=== PATIENT | male | born 1945 | race Caucasian/White ===

== ENCOUNTER 2021-05-17 11:00 | Outpatient (RCR) | payer MEDICARE, SELFPAY ==
[2021-05-03 11:15] VITALS: BP 127/70; PULSE 89; RESP 18; TEMP 36.8
--- NOTE | 2021-05-03 13:24 | HP.PCM_ITS ---
History of Present Illness Date of Service: 05/03/21 Chief Complaint: ulcers of buttocks bilaterally History of Wound: Erwin is a 75 yo gentleman that presents to the wound healing center today at the request of Dr. Abram Cosme for evaluation and treatment of bilateral buttock ulcers. He is accompanied by his , Roxana, who has been dressing the ulcers. The ulcers have been present for approximately 2 weeks and started after Erwin began sleeping in his recliner at night instead of his bed due to feeling like he could not breathe and shortness of breath when lying down. Roxana has been dressing his ulcers with triple antibiotic ointment and covering with nonstick dressing daily. She reports that there is mild drainage from the ulcers but denies odor. She has placed an egg crate foam on his recliner to help with offloading pressure to his buttock. 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 He also has increased lower extremity edema and was started on Bumex but does not have compression stockings or other compression devices for his lower legs at home. He currently does not have any ulcers of his lower legs. He denies fever, chills, increased pain or odor. [facility] Home Medications albuterol sulfate INHALATION 05/03/21 [History Last Taken Unknown] albuterol sulfate [ProAir HFA] INHALATION 05/03/21 [History Last Taken Unknown] atorvastatin 05/03/21 [History Last Taken Unknown] bumetanide 05/03/21 [History Last Taken Unknown] donepezil mg 05/03/21 [History Last Taken Unknown] fluocinonide applic TOPICAL 05/03/21 [History Last Taken Unknown] fluticasone propion-salmeterol [Advair Diskus] INHALATION 05/03/21 [History Last Taken Unknown] glyburide mg 05/03/21 [History Last Taken Unknown] lisinopril-hydrochlorothiazide tab 05/03/21 [History Last Taken Unknown] metformin mg 05/03/21 [History Last Taken Unknown] pioglitazone mg 05/03/21 [History Last Taken Unknown] prednisone 05/03/21 [History Last Taken Unknown] Allergy/AdvReac Type Severity Reaction Status Date / Time morphine Allergy Swelling Verified 05/03/21 11:20 Family History (Updated 05/03/21 @ 13:[address] Jordyn Triplett DO) Mother Cancer Father COPD (chronic obstructive pulmonary disease) Cancer Sister Cancer Brother CAD (coronary artery disease) Cancer Surgical History (Updated 05/03/21 @ 13:[address] Jordyn Triplett DO) History of appendectomy History of carpal tunnel surgery History of cataract surgery History of colonoscopy History of hemorrhoidectomy History of hernia repair History of lobectomy of lung History of repair of rotator cuff History of tonsillectomy Social History (Updated 05/03/21 @ 13:[address] Jordyn Triplett DO) household members: spouse housing: house current occupational status: retired current gender identity: male Smoking Status: Light Smoker (<10/day) Smokeless tobacco user: chewing tobacco substance use type: does not use ROS Constitutional Constitutional: Denies chills or fever(s) Eyes Eyes: Denies blurry vision or loss of vision ENT HEENT: Denies dizziness Cardiovascular Cardiovascular: Reports dyspnea, dyspnea on exertion and orthopnea; Denies abdominal pain, chest pain or palpitations Respiratory/Chest Respiratory/Chest: Reports cough, dyspnea and dyspnea on exertion Gastrointestinal Gastrointestinal: Denies diarrhea, nausea or vomiting Musculoskeletal Musculoskeletal: Reports back pain and difficulty walking Integumentary Integumentary: Reports skin ulcer Neurologic Neurologic: Reports confusion and memory loss Psychiatric Psychiatric: Reports cognitive impairment Endocrine Endocrinology: Denies cold intolerance or heat intolerance Hematologic/Lymphatic Hematologic/Lymphatic: Denies easy bleeding, easy bruising or lymphadenopathy Vital Signs Vital Signs Vital Signs: 05/03/21 11:15 Temperature 98.2 F Temperature Source Temporal Pulse Rate 89 Respiratory Rate 18 Blood Pressure 127/70 H Blood Pressure Mean 89 Blood Pressure Source Monitor Blood Pressure Position Semi-Fowlers Blood Pressure Location Left Arm Physical Exam Const alert, oriented x3 and no apparent distress General Appearance: cooperative and comfortable Nutritional Appearance: morbidly obese HEENT normocephalic and head/scalp atraumatic Mouth: oral and palatal mucosa normal Eyes PERRL Neck no lymphadenopathy and supple Resp normal respiratory effort Effort and Inspection: able to speak in complete sentences Auscultation: clear to auscultation bilaterally Cardio regular rate and regular rhythm GI normal to inspection, nondistended, normoactive bowel sounds Extremity General Extremity: edema bilateral lower extremity Details: moderate Skin Wounds: wounds noted Wound Narrative: as in clinical panel Neuro moves all extremities and no focal motor deficits Speech: speech normal Gait (Neuro): shuffling and assistive device used Psych Speech: normal speech Mood & Affect: blunted affect Debridement Note Debridement Note Post-Debridement Measurements and Additional Note: Post-Debridement Measurements/Treatment - Nurse 1 - General Ulcer Assessment Start: 05/03/21 11:15 Freq: Status: Active Protocol: TRAVON Activity Type Activity Date Activity User E-Sign Co-Sign Detail Recorded Client Recorded Date Recorded By Document 05/03/21 11:15 [id number] 05/03/21 11:19 05/03/21 11:15 WC - Today's Visit Information Type of service Follow-up Visit (Physician/MILL ROLL OPERATOR ) Arrival Mode Wheelchair Transfer Assistance Manual Patient Identification Verified (Name & Yes ) Patient Requires Transmission-Based No Precautions Vital Signs Temperature (97.8 F-99.1 F) 98.2 F Temperature Source Temporal Pulse Rate (60-100) 89 Pulse Location Monitor Respiratory Rate (12-18) 18 Respiratory rate source Observation Blood Pressure (90/60-120/80) 127/70 H Blood Pressure Mean 89 Source Monitor Position Semi-Fowlers Blood Pressure Location Left Arm History Since Last Visit- (Skip if this is Patient's initial visit) Have you changed medications since your No last visit? Any new allergies or adverse reactions No Had a fall/change in ADL's that may No increase risk of falls Signs or symptoms of abuse and/or No neglect since last visit Have you been in the hospital since your No last visit? Has dressing in place as prescribed Yes Has compression in place as prescribed No Has offloadiing in place as prescribed No Experienced any changes in pain level or No management Pain Scale: 0-10 Numeric Is Patient Pain Free? Yes - Nurse 1 - General Ulcer Measurement Start: 05/03/21 11:15 Freq: Status: Active Protocol: Activity Type Activity Date Activity User E-Sign Co-Sign Detail Recorded Client Recorded Date Recorded By Document 05/03/21 11:15 RB [id number] 05/03/21 11:19 ESTIVEN 05/03/21 11:15 Wound Center Nurse 1 2. L Buttocks -Current Size (cm) - Length 0.4 -Current Size (cm) - Width 0.4 -Current Size (cm) - Depth 0.2 -Total Square Cm 0.16 -Tunneling No -Undermining/Tunneling No -Circular Undermining No -Exudate Amt Medium -Exudate Type Serosanguineous -Wound Margin Distinct, Outline Attached -Granulation Amt Medium (34-66%) -Granulation Quality [place] -Slough/Fibrin Yes -Necrosis Amt Small (1-33%) -Necrotic Tissue Type Adherent Slough -Structure Exposed N/A -Texture (Luz Elena-wound Skin Appearance) Assessed -Moisture (Luz Elena-wound Skin Appearance) Assessed -Color (Luz Elena-wound Skin Appearance) Assessed -Temperature (Luz Elena-wound Skin No Abnormality Appearance) (Pt Warm) -Tenderness on Palpation (Luz Elena-wound No Skin Appearance) -Ulcer Cleansing Wound Cleanser -Foul Odor after Cleansing No -Anesthetic Used 4% Lidocaine Solution 1. R buttock cluster -Combined with other wound No -Current Size (cm) - Length 3 -Current Size (cm) - Width 1 -Current Size (cm) - Depth 0.2 -Total Square Cm 3 -Tunneling No -Undermining/Tunneling No -Circular Undermining No -Exudate Amt Small -Exudate Type Serosanguineous -Wound Margin Distinct, Outline Attached -Granulation Amt Medium (34-66%) -Granulation Quality [place] -Slough/Fibrin Yes -Necrosis Amt Small (1-33%) -Necrotic Tissue Type Adherent Slough -Structure Exposed N/A -Texture (Luz Elena-wound Skin Appearance) Assessed, Excoriation -Moisture (Luz Elena-wound Skin Appearance) Assessed -Color (Luz Elena-wound Skin Appearance) Assessed -Temperature (Luz Elena-wound Skin No Abnormality Appearance) (Pt Warm) -Tenderness on Palpation (Luz Elena-wound No Skin Appearance) -Ulcer Cleansing Wound Cleanser -Foul Odor after Cleansing No -Anesthetic Used 5% Lidocaine Gel WC - Nurse 2 - General Ulcer CM Notes Start: 05/03/21 11:15 Freq: Status: Active Protocol: Activity Type Activity Date Activity User E-Sign Co-Sign Detail Recorded Client Recorded Date Recorded By Document 05/03/21 11:32 MW [id number] 05/03/21 11:48 MW 05/03/21 11:32 Wound Center Nurse 2 2. L Buttocks -Time 11:33 -Correct Patient Yes -Correct Side, Site, Position Yes -Correct Procedure Yes -Procedure Performed Yes -Type of Procedure Debridement -Clinical Debridement Subcutaneous -Tissue Removed Subcutaneous -Post Debridement (cm) - Length 0.5 -Post Debridement (cm) - Width 0.4 -Post Debridement (cm) - Depth 0.1 -Total Square (Post) (cm) 0.20 -Area of Debridement (cm) - Length 0.5 -Area of Debridement (cm) - Width 0.4 -Total Square (Area) (cm) 0.20 -Tunneling No -Undermining/Tunneling No -Circular Undermining No -Wound/Ulcer Outcome Not Healed -Ulcer Cleansing Rinsed/ Irrigated with Saline -Foul Odor after Cleansing No -Bioengineered Tissue No -Bleeding Controlled with Pressure -Offloading No -Treatment Response Procedure Tolerated Well -Debridement - Subq, 1st 20sq cm Yes 1. R buttock cluster -Time 11:33 -Correct Patient Yes -Correct Side, Site, Position Yes -Correct Procedure Yes -Procedure Performed Yes -Type of Procedure Debridement -Clinical Debridement Subcutaneous -Tissue Removed Subcutaneous -Post Debridement (cm) - Length 2.5 -Post Debridement (cm) - Width 1.0 -Post Debridement (cm) - Depth 0.2 -Total Square (Post) (cm) 2.50 -Area of Debridement (cm) - Length 2.5 -Area of Debridement (cm) - Width 1.0 -Total Square (Area) (cm) 2.50 -Tunneling No -Undermining/Tunneling No -Circular Undermining No -Wound/Ulcer Outcome Not Healed -Ulcer Cleansing Rinsed/ Irrigated with Saline -Foul Odor after Cleansing No -Bioengineered Tissue No -Bleeding Controlled with Pressure -Offloading No -Treatment Response Procedure Tolerated Well -Debridement - Subq, 1st 20sq cm No Pain Scale: 0-10 Numeric Is Patient Pain Free? Yes - Nurse 3 - General Ulcer D/C NN Start: 05/03/21 11:15 Freq: Status: Active Protocol: Activity Type Activity Date Activity User E-Sign Co-Sign Detail Recorded Client Recorded Date Recorded By Document 05/03/21 12:25 RB [id number] 05/03/21 12:27 RB 05/03/21 12:25 Wound Care Nurse 3 2. L Buttocks -Ulcer Cleansing Wound Cleanser -Primary Dressing Applied Promogran Brenda Matter -Other Dressing bordered silcone foam -Promogran Brenda Matter 1 1. R buttock cluster -Other Dressing brenda, silcone bordered foam Right -Tubular Bandage Single Layer -Size of Tubigrip Used Size E -Size E ($) 1 Left -Tubular Bandage Single Layer -Size of Tubigrip Used Size E -Size E ($) 1 Treatment Response Procedure Tolerated Well Pain Scale: 0-10 Numeric Is Patient Pain Free? Yes WC - Visit Discharge Discharge Condition Stable Ambulatory Status Wheelchair Transportation Private Auto Medication Reconcilliation completed & No provided to patient/care provider Clinical Summary of Care Provided Yes Wound debrided: left buttock Laterality: Left Wound Grade/Stage: Stage II Type of Debridement: Excisional debridement Anesthesia Used: 4% Lidocaine Solution Depth: Down to and including healthy tissue and in the subcutaneous layer Percentage of wound debrided: 100 Instrument Used: 3mm curette Tissue Removed: Yellow slough, devitalized tissue Severity: Fat Layer Exposed Amount of bleeding with debridement: Mild Bleeding Controlled with: Pressure Patient tolerated procedure: Patient tolerated procedure well Additional Wound Wound debrided: right buttock cluster Laterality: Right Wound Grade/Stage: Stage II Type of Debridement: Excisional debridement Anesthesia Used: 4% Lidocaine Solution Depth: Down to and including healthy tissue and in the subcutaneous layer Percentage of wound debrided: 100 Instrument Used: 3mm curette Tissue Removed: Yellow slough, devitalized tissue Severity: Fat Layer Exposed Amount of bleeding with debridement: Mild Bleeding Controlled with: Pressure Patient tolerated procedure: Patient tolerated procedure well Assessment/Plan Assessment/Plan (1) COPD (chronic obstructive pulmonary disease): CODE(S): J44.9 - Chronic obstructive pulmonary disease, unspecified QUALIFIERS: COPD type: emphysema Emphysema type: unspecified Qualified Code(s): J43.9 - Emphysema, unspecified (2) Orthopnea: CODE(S): R06.01 - Orthopnea (3) Dementia: CODE(S): F03.90 - Unspecified dementia without behavioral disturbance QUALIFIERS: Dementia type: Alzheimer's Alzheimer's disease onset: unspecified onset Dementia behavioral disturbance: without behavioral disturbance Qualified Code(s): G30.9 - Alzheimer's disease, unspecified; F02.80 - Dementia in other diseases classified elsewhere without behavioral disturbance (4) HTN (hypertension): CODE(S): I10 - Essential (primary) hypertension QUALIFIERS: Hypertension type: unspecified Qualified Code(s): I10 - Essential (primary) hypertension (5) Chronic diastolic (congestive) heart failure: CODE(S): I50.32 - Chronic diastolic (congestive) heart failure (6) Stage II pressure ulcer of left buttock: CODE(S): L89.322 - Pressure ulcer of left buttock, stage 2 (7) Stage II pressure ulcer of right buttock: CODE(S): L89.312 - Pressure ulcer of right buttock, stage 2 (8) Type 2 diabetes mellitus: CODE(S): E11.9 - Type 2 diabetes mellitus without complications QUALIFIERS: Diabetes mellitus shelter insulin use: without terminologist use Diabetes mellitus complication status: with hyperglycemia Qualified Code(s): E11.65 - Type 2 diabetes mellitus with hyperglycemia PLAN: Erwin's ulcers were evaluated and debrided today at the wound healing center. Wound cultures were taken and will treat with antibiotics if needed. Will dress ulcers with Brenda and optifoam or similar dressing for moderate drainage. Encourage adequate glucose control and increased protein intake to help heal ulcers. Most recent labs from 2 weeks ago reviewed and show no concerning signs to impede healing. His HgbA1C was 7.0%. Stressed the importance of offloading the buttocks and demonstrated ways to offload. Encouraged sleeping in bed and also obtaining a gel cushion for him to sit on. Also will have him use tubigrip in single layer to his LE for lower extremity edema. Encouraged looking into getting 16-20 mm Hg compression socks. He will return in 1 week for nurse visit and 2 weeks for wound care.
[2021-05-10 10:52] VITALS: BP 138/69; PULSE 71; TEMP 36.6
[2021-05-17 10:51] VITALS: BP 125/67; PULSE 74; TEMP 36.1
--- NOTE | 2021-05-17 12:32 | PCM.WC.PN ---
History of Present Illness Date of Service: 05/17/21 Chief Complaint: ulcers of buttocks bilaterally History of Wound: Erwin is a 75 yo gentleman that presents to the wound healing center today at the request of Dr. Abram Cosme for evaluation and treatment of bilateral buttock ulcers. He is accompanied by his , Roxana, who has been dressing the ulcers. The ulcers have been present for approximately 2 weeks and started after Erwin began sleeping in his recliner at night instead of his bed due to feeling like he could not breathe and shortness of breath when lying down. Roxana has been dressing his ulcers with triple antibiotic ointment and covering with nonstick dressing daily. She reports that there is mild drainage from the ulcers but denies odor. She has placed an egg crate foam on his recliner to help with offloading pressure to his buttock. 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 He also has increased lower extremity edema and was started on Bumex but does not have compression stockings or other compression devices for his lower legs at home. He currently does not have any ulcers of his lower legs. He denies fever, chills, increased pain or odor. Progress of Wound: Erwin returns today for follow up of ulcers of his bilateral buttocks. He has been tolerating treatment with Brenda and has had some improvement in his ulcers. He has still been unable to sleep in bed but he has been offloading his ulcers while in his recliner. His wound culture showed yeast and staph epidermidis. He was not started on antibiotics until his ulcers were reassessed. He denies any fevers, chills, increased drainage, or erythema. Objective Data Objective Data Vital Signs: Vital Signs Temp Pulse Resp BP 97.0 F L 74 18 125/67 H 05/17/21 10:51 05/17/21 10:51 05/03/21 11:15 05/17/21 10:51 Lab / Micro Data Micro: Microbiology 05/03/21 11:45 Wound Abcess - Buttock Gram Stain - Final 05/03/21 11:45 Wound Abcess - Buttock Wound Culture - Final Staphylococcus epidermidis Yeast, not Desirae albicans 05/03/21 11:45 Wound Abcess - Buttock Anaerobic Culture - Final No anaerobic bacteria isolated. Physical Exam Const alert, oriented x3 and no apparent distress General Appearance: cooperative and comfortable Nutritional Appearance: morbidly obese HEENT normocephalic and head/scalp atraumatic Eyes PERRL Neck no lymphadenopathy and supple Resp normal respiratory effort Effort and Inspection: able to speak in complete sentences Auscultation: clear to auscultation bilaterally Cardio regular rate and regular rhythm GI normal to inspection, nondistended, normoactive bowel sounds Extremity General Extremity: edema bilateral lower extremity Details: moderate Skin Wounds: wounds noted Wound Narrative: as in clinical panel Neuro moves all extremities and no focal motor deficits Speech: speech normal Gait (Neuro): shuffling and assistive device used Psych Speech: normal speech Mood & Affect: blunted affect Debridement Note Debridement Note Post-Debridement Measurements and Additional Note: Post-Debridement Measurements/Treatment - Nurse 1 - General Ulcer Assessment Start: 05/03/21 11:15 Freq: Status: Active Protocol: ASHLEIGH.LOWGERMAINET Activity Type Activity Date Activity User E-Sign Co-Sign Detail Recorded Client Recorded Date Recorded By Document 05/03/21 11:15 RB [id number] 05/03/21 11:19 RB Document 05/10/21 10:52 AK [id number] 05/10/21 11:13 AK Document 05/17/21 10:51 KR [id number] 05/17/21 10:55 KR 05/03/21 05/10/21 05/17/21 11:15 10:52 10:51 - Today's Visit Information Type of service Follow-up Visit Nurse-only Follow-up Visit (Physician/SURVEY PROJECT MANAGER Visit (Physician/SURVEY PROJECT MANAGER ) ) Arrival Mode Wheelchair Wheelchair Wheelchair Transfer Assistance Manual Patient Identification Verified (Name & Yes Yes Yes ) Patient Requires Transmission-Based No Precautions Vital Signs Temperature (97.8 F-99.1 F) 98.2 F 97.8 F 97.0 F L Temperature Source Temporal Temporal Temporal Pulse Rate (60-100) 89 71 74 Pulse Location Monitor Monitor Monitor Respiratory Rate (12-18) 18 Respiratory rate source Observation Blood Pressure (90/60-120/80) 127/70 H 138/69 H 125/67 H Blood Pressure Mean (mm Hg) 89 92 86 Source Monitor Monitor Monitor Position Semi-Fowlers Semi-Fowlers Blood Pressure Location Left Arm Left Arm History Since Last Visit- (Skip if this is Patient's initial visit) Have you changed medications since your No No No last visit? Any new allergies or adverse reactions No No No Had a fall/change in ADL's that may No No No increase risk of falls Signs or symptoms of abuse and/or No No No neglect since last visit Have you been in the hospital since your No No No last visit? Has dressing in place as prescribed Yes Yes Yes Has compression in place as prescribed No N/A N/A Has offloadiing in place as prescribed No Yes N/A Experienced any changes in pain level or No No management Left Footwear Regular Shoe Regular Shoe Right Footwear Regular Shoe Regular Shoe Pain Scale: 0-10 Numeric Is Patient Pain Free? Yes Yes WC - Nurse 1 - General Ulcer Measurement Start: 05/03/21 11:15 Freq: Status: Active Protocol: Activity Type Activity Date Activity User E-Sign Co-Sign Detail Recorded Client Recorded Date Recorded By Document 05/03/21 11:15 RB [id number] 05/03/21 11:19 RB Document 05/10/21 10:52 AK [id number] 05/10/21 11:13 AK Document 05/17/21 10:51 KR [id number] 05/17/21 10:55 KR 05/03/21 05/10/21 05/17/21 11:15 10:52 10:51 Wound Center Nurse 1 2. L Buttocks -Current Size (cm) - Length 0.4 0.2 -Current Size (cm) - Width 0.4 0.3 -Current Size (cm) - Depth 0.2 0.1 -Total Square Cm 0.16 0.06 -Tunneling No -Undermining/Tunneling No -Circular Undermining No -Exudate Amt Medium Medium Small -Exudate Type Serosanguineous Serosanguineous Serosanguineous -Wound Margin Distinct, Distinct, Distinct, Outline Outline Outline Attached Attached Attached -Granulation Amt Medium (34-66%) Small (1-33%) -Granulation Quality [place] -Slough/Fibrin Yes -Necrosis Amt Small (1-33%) -Necrotic Tissue Type Adherent Slough Adherent Slough -Structure Exposed N/A -Texture (Luz Elena-wound Skin Appearance) Assessed No Abnormality, Assessed, Assessed Scarring -Moisture (Luz Elena-wound Skin Appearance) Assessed No Abnormality, Assessed, Assessed Maceration -Color (Luz Elena-wound Skin Appearance) Assessed No Abnormality, No Abnormality, Assessed Assessed -Temperature (Luz Elena-wound Skin No Abnormality No Abnormality No Abnormality Appearance) (Pt Warm) (Pt Warm) (Pt Warm) -Tenderness on Palpation (Luz Elena-wound No No No Skin Appearance) -Ulcer Cleansing Wound Cleanser Rinsed/ Rinsed/ Irrigated with Irrigated with Saline Saline -Foul Odor after Cleansing No No -Anesthetic Used 4% Lidocaine 5% Lidocaine Solution Gel 1. R buttock cluster -Combined with other wound No No -Current Size (cm) - Length 3 0.7 -Current Size (cm) - Width 1 1.1 -Current Size (cm) - Depth 0.2 0.2 -Total Square Cm 3 0.77 -Tunneling No -Undermining/Tunneling No No -Circular Undermining No No -Exudate Amt Small Small Small -Exudate Type Serosanguineous Serosanguineous Serosanguineous -Wound Margin Distinct, Distinct, Distinct, Outline Outline Outline Attached Attached Attached -Granulation Amt Medium (34-66%) None Present (0 Small (1-33%) %) -Granulation Quality [place] -Slough/Fibrin Yes -Necrosis Amt Small (1-33%) None Present (0 None Present (0 %) %) -Necrotic Tissue Type Adherent Slough -Structure Exposed N/A -Texture (Luz Elena-wound Skin Appearance) Assessed, No Abnormality, Assessed, Excoriation Assessed Scarring -Moisture (Luz Elena-wound Skin Appearance) Assessed No Abnormality, Assessed, Assessed Maceration -Color (Luz Elena-wound Skin Appearance) Assessed No Abnormality, No Abnormality, Assessed Assessed -Temperature (Luz Elena-wound Skin No Abnormality No Abnormality No Abnormality Appearance) (Pt Warm) (Pt Warm) (Pt Warm) -Tenderness on Palpation (Luz Elena-wound No No Skin Appearance) -Ulcer Cleansing Wound Cleanser Rinsed/ Rinsed/ Irrigated with Irrigated with Saline Saline -Foul Odor after Cleansing No No -Anesthetic Used 5% Lidocaine 5% Lidocaine Gel Gel WC - Nurse 2 - General Ulcer CM Notes Start: 05/03/21 11:15 Freq: Status: Active Protocol: Activity Type Activity Date Activity User E-Sign Co-Sign Detail Recorded Client Recorded Date Recorded By Document 05/03/21 11:32 MW [id number] 05/03/21 11:48 MW Document 05/17/21 11:32 MW [id number] 05/17/21 11:39 MW 05/03/21 05/17/21 11:32 11:32 Wound Center Nurse 2 2. L Buttocks -Time 11: 11:33 -Correct Patient Yes Yes -Correct Side, Site, Position Yes Yes -Correct Procedure Yes Yes -Procedure Performed Yes Yes -Type of Procedure Debridement Debridement -Clinical Debridement Subcutaneous Subcutaneous -Tissue Removed Subcutaneous Subcutaneous -Post Debridement (cm) - Length 0.5 0.2 -Post Debridement (cm) - Width 0.4 0.2 -Post Debridement (cm) - Depth 0.1 0.1 -Total Square (Post) (cm) 0.20 0.04 -Area of Debridement (cm) - Length 0.5 0.2 -Area of Debridement (cm) - Width 0.4 0.2 -Total Square (Area) (cm) 0.20 0.04 -Tunneling No No -Undermining/Tunneling No No -Circular Undermining No No -Wound/Ulcer Outcome Not Healed Not Healed -Ulcer Cleansing Rinsed/ Rinsed/ Irrigated with Irrigated with Saline Saline -Foul Odor after Cleansing No No -Bioengineered Tissue No No -Bleeding Controlled with Pressure Pressure -Offloading No No -Treatment Response Procedure Procedure Tolerated Well Tolerated Well -Debridement - Subq, 1st 20sq cm Yes Yes 1. R buttock cluster -Time 11:33 11:35 -Correct Patient Yes Yes -Correct Side, Site, Position Yes Yes -Correct Procedure Yes Yes -Procedure Performed Yes Yes -Type of Procedure Debridement Debridement -Clinical Debridement Subcutaneous Subcutaneous -Tissue Removed Subcutaneous Subcutaneous -Post Debridement (cm) - Length 2.5 1.1 -Post Debridement (cm) - Width 1.0 0.4 -Post Debridement (cm) - Depth 0.2 0.2 -Total Square (Post) (cm) 2.50 0.44 -Area of Debridement (cm) - Length 2.5 1.1 -Area of Debridement (cm) - Width 1.0 0.4 -Total Square (Area) (cm) 2.50 0.44 -Tunneling No No -Undermining/Tunneling No No -Circular Undermining No No -Wound/Ulcer Outcome Not Healed Not Healed -Ulcer Cleansing Rinsed/ Rinsed/ Irrigated with Irrigated with Saline Saline -Foul Odor after Cleansing No No -Bioengineered Tissue No No -Bleeding Controlled with Pressure Pressure -Offloading No No -Treatment Response Procedure Procedure Tolerated Well Tolerated Well -Debridement - Subq, 1st 20sq cm No No Pain Scale: 0-10 Numeric Is Patient Pain Free? Yes Yes WC - Nurse 3 - General Ulcer D/C NN Start: 05/03/21 11:15 Freq: Status: Active Protocol: Activity Type Activity Date Activity User E-Sign Co-Sign Detail Recorded Client Recorded Date Recorded By Document 05/03/21 12:25 RB [id number] 05/03/21 12:27 RB Document 05/10/21 10:52 AK [id number] 05/10/21 11:13 AK Document 05/17/21 11:54 ML [id number] 05/17/21 11:55 ML 05/03/21 05/10/21 05/17/21 12:25 10:52 11:54 Wound Care Nurse 3 2. L Buttocks -Ulcer Cleansing Wound Cleanser Rinsed/ Irrigated with Saline -Primary Dressing Applied Promogran Promogran Brenda Matter -Other Dressing bordered foam dressing silcone foam -Promogran 2 -Promogran Brenda Matter 1 1. R buttock cluster -Ulcer Cleansing Rinsed/ Rinsed/ Irrigated with Irrigated with Saline Saline -Primary Dressing Applied Mepilex Border, Promogran Promogran Brenda Matter -Other Dressing brenda, silcone foam dressing bordered foam -Mepilex Border 1 -Promogran 0 -Promogran Brenda Matter 0 Right -Tubular Bandage Single Layer -Size of Tubigrip Used Size E -Size E ($) 1 Left -Tubular Bandage Single Layer -Size of Tubigrip Used Size E -Size E ($) 1 Treatment Response Procedure Tolerated Well Vital Signs Temperature (97.8 F-99.1 F) 97.8 F Temperature Source Temporal Pulse Rate (60-100) 71 Pulse Location Monitor Blood Pressure (90/60-120/80) 138/69 H Blood Pressure Mean (mm Hg) 92 Source Monitor Pain Scale: 0-10 Numeric Is Patient Pain Free? Yes WC - Visit Discharge Discharge Condition Stable Stable Ambulatory Status Wheelchair Walker Transportation Private Auto Medication Reconcilliation completed & No No provided to patient/care provider Clinical Summary of Care Provided Yes Yes Wound debrided: right buttock cluster Laterality: Right Wound Grade/Stage: Stage II Type of Debridement: Excisional debridement Anesthesia Used: 5% Lidocaine Gel Depth: Down to and including healthy tissue and in the subcutaneous layer Percentage of wound debrided: 100 Instrument Used: 3mm curette Tissue Removed: yellow slough, devitalized tissue Severity: Fat Layer Exposed Amount of bleeding with debridement: Mild Bleeding Controlled with: Pressure Patient tolerated procedure: Patient tolerated procedure well Additional Wound Wound debrided: left buttock ulcer Laterality: Left Wound Grade/Stage: Stage II Type of Debridement: Excisional debridement Anesthesia Used: 4% Lidocaine Solution Depth: Down to and including healthy tissue and in the subcutaneous layer Percentage of wound debrided: 100 Instrument Used: 3mm curette Tissue Removed: yellow slough, devitalized tissue Severity: Fat Layer Exposed Amount of bleeding with debridement: Mild Bleeding Controlled with: Compression and gauze Patient tolerated procedure: Patient tolerated procedure well Assessment/Plan Assessment/Plan (1) COPD (chronic obstructive pulmonary disease): CODE(S): J44.9 - Chronic obstructive pulmonary disease, unspecified QUALIFIERS: COPD type: emphysema Emphysema type: unspecified Qualified Code(s): J43.9 - Emphysema, unspecified (2) Orthopnea: CODE(S): R06.01 - Orthopnea (3) Dementia: CODE(S): F03.90 - Unspecified dementia without behavioral disturbance QUALIFIERS: Alzheimer's disease onset: unspecified onset Dementia behavioral disturbance: without behavioral disturbance Dementia type: Alzheimer's Qualified Code(s): G30.9 - Alzheimer's disease, unspecified; F02.80 - Dementia in other diseases classified elsewhere without behavioral disturbance (4) HTN (hypertension): CODE(S): I10 - Essential (primary) hypertension QUALIFIERS: Hypertension type: unspecified Qualified Code(s): I10 - Essential (primary) hypertension (5) Chronic diastolic (congestive) heart failure: CODE(S): I50.32 - Chronic diastolic (congestive) heart failure (6) Stage II pressure ulcer of left buttock: CODE(S): L89.322 - Pressure ulcer of left buttock, stage 2 (7) Stage II pressure ulcer of right buttock: CODE(S): L89.312 - Pressure ulcer of right buttock, stage 2 (8) Type 2 diabetes mellitus: CODE(S): E11.9 - Type 2 diabetes mellitus without complications QUALIFIERS: Diabetes mellitus complication status: with hyperglycemia Diabetes mellitus correction insulin use: without correction use Qualified Code(s): E11.65 - Type 2 diabetes mellitus with hyperglycemia PLAN: Erwin's ulcers were evaluated and debrided today at the wound healing center. Wound cultures were reviewed and due to lack of improvement, he will be started on ciprofloxacin today. He may also need treatment with fluconazole for yeast but will re-evaluate next week. Will change dressing to ulcers to Promogran and optifoam or similar dressing for moderate drainage. Encourage adequate glucose control and increased protein intake to help heal ulcers. Most recent labs from 2 weeks ago reviewed and show no concerning signs to impede healing. His HgbA1C was 7.0%. Stressed the importance of offloading the buttocks and demonstrated ways to offload. Encouraged sleeping in bed and also obtaining a gel cushion for him to sit on. Also will have him use tubigrip in single layer to his LE for lower extremity edema. Encouraged looking into getting 16-20 mm Hg compression socks. He will return in 1 week for wound care.
== END 2021-05-21 23:59 ==
LOC: WC 11:00
PROVIDERS: PCP Family Medicine; Referring Provider Family Medicine; Visit Provider Family Medicine
DX: L89.312 Pressure ulcer of right buttock, stage 2 (principal); L89.322 Pressure ulcer of left buttock, stage 2; E11.65 Type 2 diabetes mellitus with hyperglycemia; I50.32 Chronic diastolic (congestive) heart failure; I11.0 Hypertensive heart disease with heart failure; F02.80 Dementia in other diseases classified elsewhere, unspecified severity, without behavioral disturbance, psychotic disturbance, mood disturbance, and anxiety; G30.9 Alzheimer's disease, unspecified; J44.9 Chronic obstructive pulmonary disease, unspecified; Z79.4 Long term (current) use of insulin; Z79.51 Long term (current) use of inhaled steroids; Z79.52 Long term (current) use of systemic steroids; Z79.899 Other long term (current) drug therapy
CPT/HCPCS: 11042; 87070; 87075; 87077; 87186; 87205; 99203; 99212; G0463

== ENCOUNTER 2021-05-31 10:00 | Outpatient (RCR) | payer MEDICARE, SELFPAY ==
[2021-05-22 00:42] VITALS: BP 125/67; PULSE 74; RESP 18; TEMP 36.1
[2021-05-24 10:31] VITALS: BP 124/58; PULSE 72; TEMP 36.2
--- NOTE | 2021-05-24 11:29 | PN.PCM_ITS ---
History of Present Illness Date of Service: 05/24/21 Chief Complaint: ulcers of buttocks bilaterally History of Wound: Erwin is a 75 yo gentleman that presents to the wound healing center today at the request of Dr. Abram Cosme for evaluation and treatment of bilateral buttock ulcers. He is accompanied by his , Roxana, who has been dressing the ulcers. The ulcers have been present for approximately 2 weeks and started after Erwin began sleeping in his recliner at night instead of his bed due to feeling like he could not breathe and shortness of breath when lying down. Roxana has been dressing his ulcers with triple antibiotic ointment and covering with nonstick dressing daily. She reports that there is mild drainage from the ulcers but denies odor. She has placed an egg crate foam on his recliner to help with offloading pressure to his buttock. 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 He also has increased lower extremity edema and was started on Bumex but does not have compression stockings or other compression devices for his lower legs at home. He currently does not have any ulcers of his lower legs. He denies fever, chills, increased pain or odor. Progress of Wound: Erwin returns today for follow up of ulcers of his bilateral buttocks. He has been tolerating treatment with Tara and has had improvement in his ulcers. The left buttock ulcer is healed today. He has still been unable to sleep in bed but he has been offloading his ulcers while in his recliner. His wound culture showed yeast and staph epidermidis. He is almost finished with antibiotics. He denies any fevers, chills, increased drainage, or erythema. Objective Data Objective Data Vital Signs: Vital Signs Temp Pulse Resp BP 97.2 F L 72 18 124/58 H 05/24/21 10:31 05/24/21 10:31 05/22/21 00:42 05/24/21 10:31 Physical Exam Const alert, oriented x3 and no apparent distress General Appearance: comfortable Nutritional Appearance: obese HEENT normocephalic and head/scalp atraumatic Resp normal respiratory effort Effort and Inspection: able to speak in complete sentences Cardio regular rate and regular rhythm Skin Wounds: wounds noted Wound Narrative: as in clinical panel Psych mental status grossly normal, thought process normal and cooperative Debridement Note Debridement Note Wound debrided: left buttock Laterality: Left No debridement was completed: No debridement was completed today (wound is healed) Post-Debridement Measurements and Additional Note: Post-Debridement Measurements/Treatment - Nurse 1 - General Ulcer Assessment Start: 05/24/21 10:31 Freq: Status: Active Protocol: TRAVON Activity Type Activity Date Activity User E-Sign Co-Sign Detail Recorded Client Recorded Date Recorded By Document 05/24/21 10:31 MIKAYLA [id number] 05/24/21 10:36 TN 05/24/21 10:31 WC - Today's Visit Information Type of service Follow-up Visit (Physician/LAST PATTERN GRADER ) Arrival Mode Wheelchair Patient Identification Verified (Name & Yes ) Patient Requires Transmission-Based No Precautions Safety Precautions NA Vital Signs Temperature (97.8 F-99.1 F) 97.2 F L Temperature Source Temporal Pulse Rate (60-100) 72 Pulse Location Monitor Blood Pressure (90/60-120/80) 124/58 H Blood Pressure Mean (mm Hg) 80 Source Monitor History Since Last Visit- (Skip if this is Patient's initial visit) Have you changed medications since your No last visit? Any new allergies or adverse reactions No Had a fall/change in ADL's that may No increase risk of falls Signs or symptoms of abuse and/or No neglect since last visit Have you been in the hospital since your No last visit? Has dressing in place as prescribed Yes Has compression in place as prescribed N/A Has offloadiing in place as prescribed N/A Left Footwear Regular Shoe Right Footwear Regular Shoe ASHLEIGH - Nurse 1 - General Ulcer Measurement Start: 05/24/21 10:31 Freq: Status: Active Protocol: Activity Type Activity Date Activity User E-Sign Co-Sign Detail Recorded Client Recorded Date Recorded By Document 05/24/21 10:31 MIKAYLA [id number] 05/24/21 10:36 MIKAYLA 05/24/21 10:31 Wound Center Nurse 1 2. L Buttocks -Current Size (cm) - Length 0.2 -Current Size (cm) - Width 0.2 -Current Size (cm) - Depth 0.2 -Total Square Cm 0.04 -Photo Taken No -Epithelialization None Present -Tunneling No -Undermining/Tunneling No -Circular Undermining No -Change in Wound Grade/Stage No -Exudate Amt None Present -Wound Margin Distinct, Outline Attached -Granulation Amt None Present (0 %) -Granulation Quality [place] -Slough/Fibrin No -Necrosis Amt None Present (0 %) -Structure Exposed N/A -Texture (Luz Elena-wound Skin Appearance) No Abnormality, Assessed -Moisture (Luz Elena-wound Skin Appearance) Assessed, Maceration -Color (Luz Elena-wound Skin Appearance) Assessed,Rubor -Temperature (Luz Elena-wound Skin No Abnormality Appearance) (Pt Warm) -Tenderness on Palpation (Luz Elena-wound No Skin Appearance) -Ulcer Cleansing Rinsed/ Irrigated with Saline -Foul Odor after Cleansing No -Anesthetic Used 5% Lidocaine Gel 1. R buttock cluster -Combined with other wound No -Current Size (cm) - Length 0.6 -Current Size (cm) - Width 0.3 -Current Size (cm) - Depth 0.2 -Total Square Cm 0.18 -Photo Taken No -Tunneling No -Undermining/Tunneling No -Circular Undermining No -Change in Wound Grade/Stage No -Exudate Amt None Present -Wound Margin Distinct, Outline Attached -Granulation Amt None Present (0 %) -Granulation Quality N/A -Slough/Fibrin No -Necrosis Amt None Present (0 %) -Structure Exposed N/A -Texture (Luz Elena-wound Skin Appearance) No Abnormality, Assessed -Moisture (Luz Elena-wound Skin Appearance) No Abnormality, Assessed -Color (Luz Elena-wound Skin Appearance) Assessed,Rubor -Temperature (Luz Elena-wound Skin No Abnormality Appearance) (Pt Warm) -Tenderness on Palpation (Luz Elena-wound No Skin Appearance) -Ulcer Cleansing Rinsed/ Irrigated with Saline -Foul Odor after Cleansing No -Anesthetic Used 5% Lidocaine Gel WC - Nurse 2 - General Ulcer CM Notes Start: 05/24/21 10:31 Freq: Status: Active Protocol: Activity Type Activity Date Activity User E-Sign Co-Sign Detail Recorded Client Recorded Date Recorded By Document 05/24/21 11:02 MW [id number] 05/24/21 11:08 MW 05/24/21 11:02 Wound Center Nurse 2 2. L Buttocks -Time 11:02 -Correct Patient Yes -Correct Side, Site, Position Yes -Correct Procedure Yes -Procedure Performed No -Post Debridement (cm) - Length 0 -Post Debridement (cm) - Width 0 -Post Debridement (cm) - Depth 0 -Total Square (Post) (cm) 0 -Wound/Ulcer Outcome Healed- Epithelialized 1. R buttock cluster -Time 11:05 -Correct Patient Yes -Correct Side, Site, Position Yes -Correct Procedure Yes -Procedure Performed Yes -Type of Procedure Debridement -Clinical Debridement Subcutaneous -Tissue Removed Subcutaneous -Post Debridement (cm) - Length 0.6 -Post Debridement (cm) - Width 0.3 -Post Debridement (cm) - Depth 0.2 -Total Square (Post) (cm) 0.18 -Area of Debridement (cm) - Length 0.6 -Area of Debridement (cm) - Width 0.3 -Total Square (Area) (cm) 0.18 -Tunneling No -Undermining/Tunneling No -Circular Undermining No -Wound/Ulcer Outcome Not Healed -Ulcer Cleansing Rinsed/ Irrigated with Saline -Foul Odor after Cleansing No -Bioengineered Tissue No -Bleeding Controlled with Pressure -Offloading No -Treatment Response Procedure Tolerated Well -Debridement - Subq, 1st 20sq cm Yes Pain Scale: 0-10 Numeric Is Patient Pain Free? Yes WC - Nurse 3 - General Ulcer D/C NN Start: 05/24/21 10:31 Freq: Status: Active Protocol: Activity Type Activity Date Activity User E-Sign Co-Sign Detail Recorded Client Recorded Date Recorded By Document 05/24/21 11:23 MIKAYLA [id number] 05/24/21 11:25 MIKAYLA 05/24/21 11:23 Wound Care Nurse 3 1. R buttock cluster -Ulcer Cleansing Rinsed/ Irrigated with Saline -Foul Odor after Cleansing No -Negative Pressure Wound Therapy N/A -Primary Dressing Applied Mepilex Border, Promogran -Mepilex Border 1 -Promogran 1 Additional Wound Wound debrided: right buttock cluster Laterality: Right Wound Grade/Stage: Stage II Type of Debridement: Excisional debridement Anesthesia Used: 4% Lidocaine Solution and 5% Lidocaine Gel Depth: Down to and including healthy tissue and in the subcutaneous layer Percentage of wound debrided: 100 Instrument Used: 3mm curette Tissue Removed: Yellow slough, devitalized tissue Severity: Fat Layer Exposed Amount of bleeding with debridement: Mild Bleeding Controlled with: Compression and gauze Patient tolerated procedure: Patient tolerated procedure well Assessment/Plan Assessment/Plan (1) Stage II pressure ulcer of right buttock: CODE(S): L89.312 - Pressure ulcer of right buttock, stage 2 (2) COPD (chronic obstructive pulmonary disease): CODE(S): J44.9 - Chronic obstructive pulmonary disease, unspecified QUALIFIERS: COPD type: emphysema Emphysema type: unspecified Qualified Code(s): J43.9 - Emphysema, unspecified (3) Dementia: CODE(S): F03.90 - Unspecified dementia without behavioral disturbance QUALIFIERS: Dementia type: Alzheimer's Alzheimer's disease onset: unspecified onset Dementia behavioral disturbance: without behavioral disturbance Qualified Code(s): G30.9 - Alzheimer's disease, unspecified; F02.80 - Dementia in other diseases classified elsewhere without behavioral disturbance (4) Stage II pressure ulcer of left buttock: CODE(S): L89.322 - Pressure ulcer of left buttock, stage 2 (5) Degenerative arthritis of spine: CODE(S): M47.9 - Spondylosis, unspecified QUALIFIERS: Spinal region: unspecified Spinal osteoarthritis complication: unspecified spinal osteoarthritis Qualified Code(s): M47.9 - Spondylosis, unspecified (6) Type 2 diabetes mellitus: CODE(S): E11.9 - Type 2 diabetes mellitus without complications QUALIFIERS: Diabetes mellitus terminal press operator insulin use: without prison use Diabetes mellitus complication status: with hyperglycemia Qualified Code(s): E11.65 - Type 2 diabetes mellitus with hyperglycemia PLAN: Erwin's ulcers were evaluated and debrided today at the wound healing center. His left buttock ulcer is healed. His right buttock ulcer is improved. Will continue dressing to ulcer to Promogran and optifoam or similar dressing for moderate drainage. Encouraged adequate glucose control and increased protein intake to help heal ulcers. Most recent labs from 2 weeks ago reviewed and show no concerning signs to impede healing. His HgbA1C was 7.0%. Stressed the importance of offloading the buttocks and demonstrated ways to offload. Encouraged sleeping in bed and also obtaining a gel cushion for him to sit on. Also will have him use tubigrip in single layer to his LE for lower extremity edema. Encouraged looking into getting 16-20 mm Hg compression socks. He will return in 1 week for wound care.
[2021-05-31 09:44] VITALS: BP 122/67; PULSE 69; RESP 18; TEMP 37.1
--- NOTE | 2021-05-31 10:21 | PN.PCM_ITS ---
History of Present Illness Date of Service: 05/31/21 Chief Complaint: ulcers of buttocks bilaterally History of Wound: Erwin is a 75 yo gentleman that presents to the wound healing center today at the request of Dr. Abram Cosme for evaluation and treatment of bilateral buttock ulcers. He is accompanied by his , Roxana, who has been dressing the ulcers. The ulcers have been present for approximately 2 weeks and started after Erwin began sleeping in his recliner at night instead of his bed due to feeling like he could not breathe and shortness of breath when lying down. Roxana has been dressing his ulcers with triple antibiotic ointment and covering with nonstick dressing daily. She reports that there is mild drainage from the ulcers but denies odor. She has placed an egg crate foam on his recliner to help with offloading pressure to his buttock. 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 He also has increased lower extremity edema and was started on Bumex but does not have compression stockings or other compression devices for his lower legs at home. He currently does not have any ulcers of his lower legs. He denies fever, chills, increased pain or odor. Progress of Wound: Erwin returns today for follow up of ulcers of his bilateral buttocks. He has been tolerating treatment with Tara and his ulcers are healed. He has still been unable to sleep in bed but he has been offloading his ulcers while in his recliner. He denies any fevers, chills, increased drainage, or erythema. Objective Data Objective Data Vital Signs: Vital Signs Temp Pulse Resp BP 98.7 F 69 18 122/67 H 05/31/21 09:44 05/31/21 09:44 05/31/21 09:44 05/31/21 09:44 Physical Exam Const alert, oriented x3 and no apparent distress General Appearance: comfortable Nutritional Appearance: obese HEENT normocephalic and head/scalp atraumatic Resp normal respiratory effort Effort and Inspection: able to speak in complete sentences Cardio regular rate and regular rhythm Skin Wounds: wounds noted Wound Narrative: as in clinical panel Psych mental status grossly normal, thought process normal and cooperative Debridement Note Debridement Note Wound debrided: right buttock Laterality: Right No debridement was completed: No debridement was completed today (ulcer is healed) Post-Debridement Measurements and Additional Note: Post-Debridement Measurements/Treatment ASHLEIGH - Nurse 1 - General Ulcer Assessment Start: 05/24/21 10:31 Freq: Status: Active Protocol: TRAVON Activity Type Activity Date Activity User E-Sign Co-Sign Detail Recorded Client Recorded Date Recorded By Document 05/24/21 10:31 AK [id number] 05/24/21 10:36 AK Document 05/31/21 09:44 RB [id number] 05/31/21 09:47 RB 05/24/21 05/31/21 10:31 09:44 WC - Today's Visit Information Type of service Follow-up Visit Follow-up Visit (Physician/MEDICAL FACILITIES SECTION DIRECTOR (Physician/MEDICAL FACILITIES SECTION DIRECTOR ) ) Arrival Mode Wheelchair Wheelchair Transfer Assistance Manual Patient Identification Verified (Name & Yes Yes ) Patient Requires Transmission-Based No No Precautions Safety Precautions NA Vital Signs Temperature (97.8 F-99.1 F) 97.2 F L 98.7 F Temperature Source Temporal Temporal Pulse Rate (60-100) 72 69 Pulse Location Monitor Monitor Respiratory Rate (12-18) 18 Respiratory rate source Observation Blood Pressure (90/60-120/80) 124/58 H 122/67 H Blood Pressure Mean (mm Hg) 80 85 Source Monitor Monitor Position Semi-Fowlers Blood Pressure Location Left Arm History Since Last Visit- (Skip if this is Patient's initial visit) Have you changed medications since your No No last visit? Any new allergies or adverse reactions No No Had a fall/change in ADL's that may No No increase risk of falls Signs or symptoms of abuse and/or No No neglect since last visit Have you been in the hospital since your No No last visit? Has dressing in place as prescribed Yes Yes Has compression in place as prescribed N/A No Has offloadiing in place as prescribed N/A No Experienced any changes in pain level or No management Left Footwear Regular Shoe Regular Shoe Right Footwear Regular Shoe Regular Shoe Pain Scale: 0-10 Numeric Is Patient Pain Free? Yes ASHLEIGH - Nurse 1 - General Ulcer Measurement Start: 05/24/21 10:31 Freq: Status: Active Protocol: Activity Type Activity Date Activity User E-Sign Co-Sign Detail Recorded Client Recorded Date Recorded By Document 05/24/21 10:31 AK [id number] 05/24/21 10:36 AK Document 05/31/21 09:44 RB [id number] 05/31/21 09:47 RB 05/24/21 05/31/21 10:31 09:44 Wound Center Nurse 1 2. L Buttocks -Current Size (cm) - Length 0.2 -Current Size (cm) - Width 0.2 -Current Size (cm) - Depth 0.2 -Total Square Cm 0.04 -Photo Taken No -Epithelialization None Present -Tunneling No -Undermining/Tunneling No -Circular Undermining No -Change in Wound Grade/Stage No -Exudate Amt None Present -Wound Margin Distinct, Outline Attached -Granulation Amt None Present (0 %) -Granulation Quality [place] -Slough/Fibrin No -Necrosis Amt None Present (0 %) -Structure Exposed N/A -Texture (Luz Elena-wound Skin Appearance) No Abnormality, Assessed -Moisture (Luz Elena-wound Skin Appearance) Assessed, Maceration -Color (Luz Elena-wound Skin Appearance) Assessed,Rubor -Temperature (Luz Elena-wound Skin No Abnormality Appearance) (Pt Warm) -Tenderness on Palpation (Luz Elena-wound No Skin Appearance) -Ulcer Cleansing Rinsed/ Irrigated with Saline -Foul Odor after Cleansing No -Anesthetic Used 5% Lidocaine Gel 1. R buttock cluster -Combined with other wound No No -Current Size (cm) - Length 0.6 0.1 -Current Size (cm) - Width 0.3 0.1 -Current Size (cm) - Depth 0.2 0.1 -Total Square Cm 0.18 0.01 -Photo Taken No -Tunneling No No -Undermining/Tunneling No No -Circular Undermining No No -Change in Wound Grade/Stage No -Exudate Amt None Present None Present -Wound Margin Distinct, Distinct, Outline Outline Attached Attached -Granulation Amt None Present (0 Large (67-100%) %) -Granulation Quality N/A [place] -Slough/Fibrin No Yes -Necrosis Amt None Present (0 Small (1-33%) %) -Necrotic Tissue Type Adherent Slough -Structure Exposed N/A N/A -Texture (Luz Elena-wound Skin Appearance) No Abnormality, Assessed, Assessed Scarring -Moisture (Luz Elena-wound Skin Appearance) No Abnormality, Assessed Assessed -Color (Luz Elena-wound Skin Appearance) Assessed,Rubor Assessed -Temperature (Luz Elena-wound Skin No Abnormality No Abnormality Appearance) (Pt Warm) (Pt Warm) -Tenderness on Palpation (Luz Elena-wound No No Skin Appearance) -Ulcer Cleansing Rinsed/ Wound Cleanser Irrigated with Saline -Foul Odor after Cleansing No No -Anesthetic Used 5% Lidocaine 5% Lidocaine Gel Gel ASHLEIGH - Nurse 2 - General Ulcer CM Notes Start: 05/24/21 10:31 Freq: Status: Active Protocol: Activity Type Activity Date Activity User E-Sign Co-Sign Detail Recorded Client Recorded Date Recorded By Document 05/24/21 11:02 MW [id number] 05/24/21 11:08 MW Document 05/31/21 10:04 MW [id number] 05/31/21 10:08 MW 05/24/21 05/31/21 11:02 10:04 Wound Center Nurse 2 2. L Buttocks -Time 11:02 -Correct Patient Yes -Correct Side, Site, Position Yes -Correct Procedure Yes -Procedure Performed No -Post Debridement (cm) - Length 0 -Post Debridement (cm) - Width 0 -Post Debridement (cm) - Depth 0 -Total Square (Post) (cm) 0 -Wound/Ulcer Outcome Healed- Epithelialized 1. R buttock cluster -Time 11:05 10:04 -Correct Patient Yes Yes -Correct Side, Site, Position Yes Yes -Correct Procedure Yes Yes -Procedure Performed Yes No -Type of Procedure Debridement -Clinical Debridement Subcutaneous -Tissue Removed Subcutaneous -Post Debridement (cm) - Length 0.6 0 -Post Debridement (cm) - Width 0.3 0 -Post Debridement (cm) - Depth 0.2 0 -Total Square (Post) (cm) 0.18 0 -Area of Debridement (cm) - Length 0.6 -Area of Debridement (cm) - Width 0.3 -Total Square (Area) (cm) 0.18 -Tunneling No -Undermining/Tunneling No -Circular Undermining No -Wound/Ulcer Outcome Not Healed Healed- Epithelialized -Ulcer Cleansing Rinsed/ Irrigated with Saline -Foul Odor after Cleansing No -Bioengineered Tissue No -Bleeding Controlled with Pressure -Offloading No -Treatment Response Procedure Tolerated Well -Debridement - Subq, 1st 20sq cm Yes Pain Scale: 0-10 Numeric Is Patient Pain Free? Yes Yes ASHLEIGH - Nurse 3 - General Ulcer D/C NN Start: 05/24/21 10:31 Freq: Status: Active Protocol: Activity Type Activity Date Activity User E-Sign Co-Sign Detail Recorded Client Recorded Date Recorded By Document 05/24/21 11:23 AK [id number] 05/24/21 11:25 AK Document 05/31/21 10:10 MW [id number] 05/31/21 10:10 MW 05/24/21 05/31/21 11:23 10:10 Wound Care Nurse 3 1. R buttock cluster -Ulcer Cleansing Rinsed/ Irrigated with Saline -Foul Odor after Cleansing No -Negative Pressure Wound Therapy N/A -Primary Dressing Applied Mepilex Border, Promogran -Mepilex Border 1 -Promogran 1 Treatment Response Procedure Tolerated Well Teaching: Wound Center Skin Care -Person Taught Patient,Family -Teaching Method Discussion -Response to teaching Verbalize understanding Dressing Your Wound -Person Taught Patient,Family -Teaching Method Discussion -Response to teaching Verbalize understanding WC - Visit Discharge Discharge Condition Stable Ambulatory Status Ambulatory,Cane Transportation Private Auto Accompanied by Medication Reconcilliation completed & No provided to patient/care provider Clinical Summary of Care Provided Yes Assessment/Plan Assessment/Plan (1) Stage II pressure ulcer of right buttock: CODE(S): L89.312 - Pressure ulcer of right buttock, stage 2 (2) COPD (chronic obstructive pulmonary disease): CODE(S): J44.9 - Chronic obstructive pulmonary disease, unspecified QUALIFIERS: COPD type: emphysema Emphysema type: unspecified Qualified Code(s): J43.9 - Emphysema, unspecified (3) Dementia: CODE(S): F03.90 - Unspecified dementia without behavioral disturbance QUALIFIERS: Dementia type: Alzheimer's Alzheimer's disease onset: unspecified onset Dementia behavioral disturbance: without behavioral disturbance Qualified Code(s): G30.9 - Alzheimer's disease, unspecified; F02.80 - Dementia in other diseases classified elsewhere without behavioral disturbance (4) Stage II pressure ulcer of left buttock: CODE(S): L89.322 - Pressure ulcer of left buttock, stage 2 (5) Degenerative arthritis of spine: CODE(S): M47.9 - Spondylosis, unspecified QUALIFIERS: Spinal region: unspecified Spinal osteoarthritis complication: unspecified spinal osteoarthritis Qualified Code(s): M47.9 - Spondylosis, unspecified (6) Type 2 diabetes mellitus: CODE(S): E11.9 - Type 2 diabetes mellitus without complications QUALIFIERS: Diabetes mellitus engine house helper insulin use: without engine house helper use Diabetes mellitus complication status: with hyperglycemia Qualified Code(s): E11.65 - Type 2 diabetes mellitus with hyperglycemia PLAN: Erwin's ulcer was evaluated and debrided today at the wound healing center. His left buttock ulcer remains healed. His right buttock ulcer is healed today. He was advised to use Vaseline, A and D ointment or Aquaphor to protect and maintain moisture to the healed areas for the next few weeks. Reiterated the importance of offloading and avoiding pressure to his buttocks to avoid recurrence of ulcers. Encouraged adequate glucose control and increased protein intake to help heal ulcers. Most recent labs from 2 weeks ago reviewed and show no concerning signs to impede healing. His HgbA1C was 7.0%. Stressed the importance of offloading the buttocks and demonstrated ways to offload. Encouraged sleeping in bed and also obtaining a gel cushion for him to sit on. Also will have him use tubigrip in single layer to his LE for lower extremity edema. Encouraged looking into getting 16-20 mm Hg compression socks. He will be discharged and will follow up as needed.
== END 2021-05-31 10:27 | disposition home or self-care (01) ==
LOC: WC 10:00
PROVIDERS: PCP Family Medicine; Referring Provider Family Medicine; Visit Provider Family Medicine
DX: L89.312 Pressure ulcer of right buttock, stage 2 (principal); F03.90 Unspecified dementia, unspecified severity, without behavioral disturbance, psychotic disturbance, mood disturbance, and anxiety; F02.80 Dementia in other diseases classified elsewhere, unspecified severity, without behavioral disturbance, psychotic disturbance, mood disturbance, and anxiety; J43.9 Emphysema, unspecified; L89.322 Pressure ulcer of left buttock, stage 2; M47.9 Spondylosis, unspecified; E11.65 Type 2 diabetes mellitus with hyperglycemia; Z79.4 Long term (current) use of insulin
CPT/HCPCS: 11042; 99212; G0463

== ENCOUNTER 2021-10-11 09:30 | Outpatient (RCR) | payer MEDICARE, SELFPAY ==
[2021-10-04 09:09] VITALS: BP 144/71; PULSE 75; RESP 18; TEMP 36.4; O2SAT 97; BMI 29.5
--- NOTE | 2021-10-04 13:03 | PCM.WC.HP ---
History of Present Illness Date of Service: 10/04/21 Chief Complaint: ulcer right buttock History of Wound: Erwin is a 76 yo gentleman that presents to the wound healing center today at the request of Dr. Abram Cosme for evaluation and treatment of right buttock ulcer. He is accompanied by his , Roxana, who has been dressing the ulcer. The ulcers have been present for approximately 2 weeks and started after Erwin began sleeping in his recliner at night instead of his bed due to feeling like he could not breathe and shortness of breath when lying down. Roxana has been dressing the ulcer with A and D ointment and gauze. She reports that there is mild drainage from the ulcers but denies odor. She has placed an egg crate foam on his recliner to help with offloading pressure to his buttock. 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 He denies fever, chills, increased pain or odor. [facility] Home Medications albuterol sulfate INHALATION 05/03/21 [History Last Taken Unknown] albuterol sulfate [ProAir HFA] INHALATION 05/03/21 [History Last Taken Unknown] aspirin 81 mg PO DAILY 05/03/21 [History Last Taken Unknown] atorvastatin 10 mg PO DAILY 05/03/21 [History Last Taken Unknown] bumetanide 0.5 mg PO DAILY 05/03/21 [History Last Taken Unknown] donepezil 10 mg PO DAILY 05/03/21 [History Last Taken Unknown] fluticasone propion-salmeterol [Advair Diskus] 1 inh INHALATION DAILY 05/03/21 [History Last Taken Unknown] glyburide 10 mg PO BID 05/03/21 [History Last Taken Unknown] lisinopril-hydrochlorothiazide 1 tab PO DAILY 05/03/21 [History Last Taken Unknown] metformin 1,000 mg PO BID 05/03/21 [History Last Taken Unknown] pioglitazone 15 mg PO DAILY 05/03/21 [History Last Taken Unknown] prednisone 10 mg PO DAILY 05/03/21 [History Last Taken Unknown] zinc 30 mg PO DAILY 05/03/21 [History Last Taken Unknown] ciprofloxacin HCl 500 mg PO BID #20 tab 05/17/21 [Rx Last Taken Unknown] Allergy/AdvReac Type Severity Reaction Status Date / Time morphine Allergy Swelling Verified 05/03/21 11:20 Family History Mother Cancer Father COPD (chronic obstructive pulmonary disease) Cancer Sister Cancer Brother CAD (coronary artery disease) Cancer Surgical History History of appendectomy History of carpal tunnel surgery History of cataract surgery History of colonoscopy History of hemorrhoidectomy History of hernia repair History of lobectomy of lung History of repair of rotator cuff History of tonsillectomy Social History household members: spouse housing: house current occupational status: retired Smoking Status: Light Smoker (<10/day) Smokeless tobacco user: chewing tobacco substance use type: does not use ROS Constitutional Constitutional: Denies chills, fever(s) or headache(s) Eyes Eyes: Denies blurry vision or loss of vision Cardiovascular Cardiovascular: Reports dyspnea and edema Respiratory/Chest Respiratory/Chest: Reports cough and dyspnea Gastrointestinal Gastrointestinal: Denies diarrhea, nausea or vomiting Musculoskeletal Musculoskeletal: Reports back pain Integumentary Integumentary: Reports erythema and skin ulcer Neurologic Neurologic: Reports numbness Psychiatric Psychiatric: Reports cognitive impairment Vital Signs Vital Signs Vital Signs: 10/04/21 09:09 Temperature 97.5 F L Temperature Source Temporal Pulse Rate 75 Respiratory Rate 18 Blood Pressure 144/71 H Blood Pressure Mean 95 Blood Pressure Source Monitor Blood Pressure Position Semi-Fowlers Blood Pressure Location Left Arm Pulse Ox 97 Weight Weight: 104.326 kg Body Mass Index (BMI) 29.5 Physical Exam Const alert, oriented x3 and no apparent distress General Appearance: comfortable Nutritional Appearance: morbidly obese HEENT normocephalic and head/scalp atraumatic Mouth: oral and palatal mucosa normal Resp Effort and Inspection: audible wheezes Auscultation: rales bilateral throughout Cardio regular rate and regular rhythm GI Palpation: soft Skin Wounds: wounds noted Wound Narrative: as in clinical panel Neuro Sensorium / Orientation: alert, oriented to person and oriented to place Psych cooperative and affect normal Debridement Note Debridement Note Wound debrided: right buttock Laterality: Right Wound Grade/Stage: Stage II Type of Debridement: Excisional debridement Anesthesia Used: 4% Lidocaine Solution Depth: Down to and including healthy tissue and in the subcutaneous layer Percentage of wound debrided: 100 Instrument Used: 3mm curette Tissue Removed: Yellow slough, devitalized tissue Severity: Fat Layer Exposed Amount of bleeding with debridement: Mild Bleeding Controlled with: Compression and gauze Patient tolerated procedure: Patient tolerated procedure well Post-Debridement Measurements and Additional Note: Post-Debridement Measurements/Treatment - Nurse 1 - General Ulcer Assessment Start: 10/04/21 09:03 Freq: Status: Active Protocol: TRAVON Activity Type Activity Date Activity User E-Sign Co-Sign Detail Recorded Client Recorded Date Recorded By Document 10/04/21 09:09 OK [id number] 10/04/21 09:21 OK 10/04/21 09:09 - Today's Visit Information Type of service Follow-up Visit (Physician/[employer]END[employer] ) Arrival Mode Wheelchair Accompanied by Patient Identification Verified (Name & Yes ) Blood Sugar Stated by Patient Height and Weight Height 6 ft 2 in Weight 104.326 kg Weight in Pounds 230.0 lbs Body Mass Index (BMI) 29.5 BMI Classification Overweight BSA - [place] 2.31 Vital Signs Temperature (97.8 F-99.1 F) 97.5 F L Temperature Source Temporal Pulse Rate (60-100) 75 Pulse Location Monitor Respiratory Rate (12-18) 18 Respiratory rate source Observation Pulse Oximetry 97 Blood Pressure (90/60-120/80) 144/71 H Blood Pressure Mean 95 Source Monitor Position Semi-Fowlers Blood Pressure Location Left Arm Pain Scale: 0-10 Numeric Is Patient Pain Free? Yes - Nurse 1 - General Ulcer Measurement Start: 10/04/21 09:03 Freq: Status: Active Protocol: Activity Type Activity Date Activity User E-Sign Co-Sign Detail Recorded Client Recorded Date Recorded By Document 10/04/21 09:09 OK [id number] 10/04/21 09:21 OK 10/04/21 09:09 Wound Center Nurse 1 # 3 Right Buttock -Combined with other wound No -Current Size (cm) - Length 0.5 -Current Size (cm) - Width 0.4 -Current Size (cm) - Depth 0.2 -Total Square Cm 0.20 -Tunneling No -Undermining/Tunneling No -Circular Undermining No -Exudate Amt Small -Exudate Type Serosanguineous -Wound Margin Distinct, Outline Attached -Granulation Amt Medium (34-66%) -Granulation Quality [place] -Slough/Fibrin Yes -Necrosis Amt Medium (34-66%) -Necrotic Tissue Type Adherent Slough -Structure Exposed N/A -Texture (Luz Elena-wound Skin Appearance) Assessed, Excoriation -Moisture (Luz Elena-wound Skin Appearance) Assessed -Color (Luz Elena-wound Skin Appearance) Not Assessed -Temperature (Luz Elena-wound Skin No Abnormality Appearance) (Pt Warm) -Tenderness on Palpation (Luz Elena-wound No Skin Appearance) -Ulcer Cleansing Wound Cleanser -Foul Odor after Cleansing No -Anesthetic Used 5% Lidocaine Gel -Wound Comment(s) pt appears SOB with activity. lungs auscultated rhonchi present bilaterally. wet cough. SPO2 97% on RA. Dr. Moran notified . ASHLEIGH - Nurse 2 - General Ulcer CM Notes Start: 10/04/21 09:03 Freq: Status: Active Protocol: Activity Type Activity Date Activity User E-Sign Co-Sign Detail Recorded Client Recorded Date Recorded By Document 10/04/21 09:35 MW [id number] 10/04/21 09:44 MW 10/04/21 09:35 Wound Center Nurse 2 -Time 09:37 -Correct Patient Yes -Correct Side, Site, Position Yes -Correct Procedure Yes -Procedure Performed Yes -Type of Procedure Debridement -Clinical Debridement Subcutaneous -Tissue Removed Subcutaneous -Post Debridement (cm) - Length 0.3 -Post Debridement (cm) - Width 0.2 -Post Debridement (cm) - Depth 0.1 -Total Square (Post) (cm) 0.06 -Area of Debridement (cm) - Length 0.3 -Area of Debridement (cm) - Width 0.2 -Total Square (Area) (cm) 0.06 -Tunneling No -Undermining/Tunneling No -Circular Undermining No -Wound/Ulcer Outcome Not Healed -Ulcer Cleansing Rinsed/ Irrigated with Saline -Foul Odor after Cleansing No -Bioengineered Tissue No -Bleeding Controlled with Pressure -Offloading No -Treatment Response Procedure Tolerated Well -Debridement - Subq, 1st 20sq cm Yes Pain Scale: 0-10 Numeric Is Patient Pain Free? Yes ASHLEIGH - Nurse 3 - General Ulcer D/C NN Start: 10/04/21 09:03 Freq: Status: Active Protocol: Activity Type Activity Date Activity User E-Sign Co-Sign Detail Recorded Client Recorded Date Recorded By Document 10/04/21 10:01 OK [id number] 10/04/21 10:02 OK 10/04/21 10:01 Wound Care Nurse 3 # 3 Right Buttock -Primary Dressing Applied C Hydrogel ($), Mepilex Border -Mepilex Border 1 Pain Scale: 0-10 Numeric Is Patient Pain Free? Yes WC - Visit Discharge Ambulatory Status Wheelchair Transportation Private Auto Medication Reconcilliation completed & No provided to patient/care provider Clinical Summary of Care Provided Yes Notes: home with . explained how to dress wound to and pt pt verbalized understanding Assessment/Plan Assessment/Plan (1) Stage II pressure ulcer of right buttock: CODE(S): L89.312 - Pressure ulcer of right buttock, stage 2 (2) Orthopnea: CODE(S): R06.01 - Orthopnea (3) COPD (chronic obstructive pulmonary disease): CODE(S): J44.9 - Chronic obstructive pulmonary disease, unspecified QUALIFIERS: COPD type: emphysema Emphysema type: unspecified Qualified Code(s): J43.9 - Emphysema, unspecified (4) HTN (hypertension): CODE(S): I10 - Essential (primary) hypertension QUALIFIERS: Hypertension type: unspecified Qualified Code(s): I10 - Essential (primary) hypertension (5) Degenerative arthritis of spine: CODE(S): M47.9 - Spondylosis, unspecified QUALIFIERS: Spinal osteoarthritis complication: unspecified spinal osteoarthritis Spinal region: unspecified Qualified Code(s): M47.9 - Spondylosis, unspecified (6) Type 2 diabetes mellitus: CODE(S): E11.9 - Type 2 diabetes mellitus without complications QUALIFIERS: Diabetes mellitus complication status: with hyperglycemia Diabetes mellitus intermediate insulin use: without 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 Wound culture not taken but will treat him with a course of doxycycline for possible infection as well as bronchitis/pneumonia. Advised his to call his PCP if he is continuing to have cough and shortness of breath. Also question heart failure and need for diuretic. Will dress ulcer with collagen hydrogel and optifoam or similar dressing for moderate drainage every other day. Encourage adequate glucose control and increased protein intake to help heal ulcers. Stressed the importance of offloading the buttocks and demonstrated ways to offload. Encouraged sleeping in bed and also obtaining a gel cushion for him to sit on. He will return in 1 week for wound care.
[2021-10-11 09:32] VITALS: BP 125/67; PULSE 76; RESP 18; TEMP 36.6; BMI 29.5
--- NOTE | 2021-10-11 12:54 | PCM.WC.PN ---
History of Present Illness Date of Service: 10/11/21 Chief Complaint: ulcer right buttock History of Wound: Erwin is a 76 yo gentleman that presents to the wound healing center today at the request of Dr. Abram Cosme for evaluation and treatment of right buttock ulcer. He is accompanied by his , Roxana, who has been dressing the ulcer. The ulcers have been present for approximately 2 weeks and started after Erwin began sleeping in his recliner at night instead of his bed due to feeling like he could not breathe and shortness of breath when lying down. Roxana has been dressing the ulcer with A and D ointment and gauze. She reports that there is mild drainage from the ulcers but denies odor. She has placed an egg crate foam on his recliner to help with offloading pressure to his buttock. 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 He denies fever, chills, increased pain or odor. Subjective Subjective Erwin tolerated treatment with hydrogel and foam silicone bordered dressing and his ulcer is healed. Objective Data Objective Data Vital Signs: Vital Signs Temp Pulse Resp BP Pulse Ox 98 F 76 18 125/67 H 97 10/11/21 09:32 10/11/21 09:32 10/11/21 09:32 10/11/21 09:32 10/04/21 09:09 Weight: 104.326 kg Body Mass Index (BMI) 29.5 Physical Exam Const alert, oriented x3 and no apparent distress General Appearance: comfortable Nutritional Appearance: morbidly obese HEENT normocephalic and head/scalp atraumatic Resp Auscultation: clear to auscultation bilaterally Cardio regular rate and regular rhythm GI Palpation: soft Skin Wounds: wounds noted Wound Narrative: as in clinical panel Neuro Sensorium / Orientation: alert, oriented to person and oriented to place Psych cooperative and affect normal Assessment/Plan Assessment/Plan (1) Stage II pressure ulcer of right buttock: CODE(S): L89.312 - Pressure ulcer of right buttock, stage 2 (2) Orthopnea: CODE(S): R06.01 - Orthopnea (3) COPD (chronic obstructive pulmonary disease): CODE(S): J44.9 - Chronic obstructive pulmonary disease, unspecified QUALIFIERS: COPD type: emphysema Emphysema type: unspecified Qualified Code(s): J43.9 - Emphysema, unspecified (4) HTN (hypertension): CODE(S): I10 - Essential (primary) hypertension QUALIFIERS: Hypertension type: unspecified Qualified Code(s): I10 - Essential (primary) hypertension (5) Degenerative arthritis of spine: CODE(S): M47.9 - Spondylosis, unspecified QUALIFIERS: Spinal region: unspecified Spinal osteoarthritis complication: unspecified spinal osteoarthritis Qualified Code(s): M47.9 - Spondylosis, unspecified (6) Type 2 diabetes mellitus: CODE(S): E11.9 - Type 2 diabetes mellitus without complications QUALIFIERS: 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 Will dress ulcer with collagen hydrogel and optifoam or similar dressing for moderate drainage every other day for another week. Encourage adequate glucose control and increased protein intake to help heal ulcers. Stressed the importance of offloading the buttocks and demonstrated ways to offload. Encouraged sleeping in bed and also obtaining a gel cushion for him to sit on. He will be discharged and advised to call if he develops any more ulcers.
== END 2021-10-11 10:20 | disposition home or self-care (01) ==
LOC: WC 09:30
PROVIDERS: PCP Family Medicine; Visit Provider Family Medicine
DX: E11.622 Type 2 diabetes mellitus with other skin ulcer (principal); L89.312 Pressure ulcer of right buttock, stage 2; J44.9 Chronic obstructive pulmonary disease, unspecified; E11.65 Type 2 diabetes mellitus with hyperglycemia; I10 Essential (primary) hypertension; M47.9 Spondylosis, unspecified; F17.220 Nicotine dependence, chewing tobacco, uncomplicated; Z79.899 Other long term (current) drug therapy; Z79.84 Long term (current) use of oral hypoglycemic drugs; Z79.82 Long term (current) use of aspirin; Z79.52 Long term (current) use of systemic steroids
CPT/HCPCS: 11042; 99213; G0463